=== PATIENT | male | born 1945 | race Caucasian/White ===

== ENCOUNTER 2016-11-30 05:31 | Day surgery (SDC) | payer MEDICARE, OTHER ==
[2016-11-30] VITALS (9 sets, daily range): BP systolic 97–135; BP diastolic 63–95; PULSE 64–91; RESP 9–16; O2SAT 88–100
[~2016-11-30] VITALS: Ht 170.2 cm; Wt 80.6 kg
[~2016-11-30 05:31] MED LIST: ASPI-973 PO; ATOR20TA PO; CARV3.122 PO; FINA5TAB9 PO; FUR20 PO; GABA-502 PO; IMAT400T7 PO; LOSA25TA21 PO; MULT-1018 PO; NICO1PAT16 TRANSDERM; NITR0.4T SL; OMEP40CA36 PO; ONDA-54 SL; OXYC-474 PO; OXYC10TA69 PO; PROC10TA PO; TAMS0.4C98 PO
[2016-11-30] MEDS ORDERED: Ondansetron 2 mg/mL 2 mL Inj ONE (05:32)
[2016-11-30] MEDS ORDERED: Dexamethasone 4 mg/mL Inj ONE (05:32)
[2016-11-30] MEDS ORDERED: EPHEDrine/NS 5 mg/mL 5 mL Syringe ONE (05:32)
[2016-11-30] MEDS ORDERED: HYDROmorphone 2 mg/mL Inj ONE (05:32)
[2016-11-30] MEDS ORDERED: Propofol 10,000 mCg/mL 20 mL Inj ONE (05:32)
[2016-11-30] MEDS ORDERED: fentaNYL-PF 50 mCg/mL 2 mL Inj ONE (05:32)
[2016-11-30] MEDS ORDERED: levoFLOXacin Inj 500 MG in IV Premix 1 EACH IV SCH (06:00)
[2016-11-30] MEDS: Lactated Ringer's 1,000 ML IV SCH ×2 (06:24→07:25)
--- NOTE | 2016-11-30 07:03 | PCM.HPANE ---
Patient Data Surgeon Admitting Provider: Attending Provider:Maria Antonia Kathleen MD Primary Care Physician:Nino Erickson MD Other Provider:Dari Pimentel Anesthesia Reason for Visit Urinary Retention Ht/WT & BMI Height (Feet): 5 Height (Inches): 7 Weight (Kilograms): 80.6 Body Mass Index 27.00 Allergies Coded Allergies: Penicillins (Verified Allergy, Severe, rash, fever, 11/25/16) lisinopril (Verified Adverse Reaction, Severe, cough, 11/25/16) Past Anesthesia History Anesthesia History: Denies:: Abnormal Airway, Anesthesia Reactions, Difficult Intubation, Fam Anesthesia Reaction, Fam Malignant Hypertherm, Malignant Hyperthermia Diabetes History Hx Diabetes?: No MRSA MRSA: No Medications Blood Thinner: Aspirin, Plavix Hypertension Medication: Yes (LASIX,LOSARTAN) Home Meds Incl Beta Ronine: Yes Date Beta Ronnie Taken: November 29, 2016 Time Beta Ronnie Taken: 1700 Previous Beta Ronnie Dose >24: Previous Dose <24 Hours Reported Medications Furosemide 20 Mg Tab20 Mg PO DAILY 30 Days Ref 0 11/25/16 Losartan Potassium 25 Mg Rlaxge00 Mg PO DAILY 11/25/16 Prochlorperazine Maleate (Prochlorperazine)10 Mg Wuzwle71 Mg PO DAILY Ref 0 11/25/16 Nitroglycerin SL (Nitrostat)0.4 Mg Tab.subl0.4 Mg SL Q5MIN PRN chest pain #1 BOTTLE 11/25/16 Multivitamin (Multi Vitamin Daily)1 Each Tablet1 Each PO DAILY 30 Days Ref 0 11/25/16 Omeprazole 40 Mg Capsule.dr40 Mg PO DAILY Ref 0 11/25/16 Finasteride 5 Mg Tablet5 Mg PO DAILY 30 Days Ref 0 11/25/16 Oxycodone ER (Oxycontin)10 Mg Tab.er.12h10 Mg PO BID 05/25/16 Oxycodone (Roxicodone)5 Mg Tablet5 Mg PO Q4H PRN For Pain Ref 0 05/25/16 Ondansetron 8 Mg Tablet8 Mg SL Q8H 05/25/16 Imatinib Mesylate 400 Mg Bxeclk954 Mg PO DAILY 05/25/16 Carvedilol 3.125 Mg Tablet3.125 Mg PO BID Ref 0 05/25/16 Atorvastatin (Lipitor)20 Mg Wlsykc31 Mg PO DAILY Ref 0 05/25/16 Aspirin 81 Mg Nzoumc97 Mg PO DAILY Ref 0 05/25/16 Tamsulosin (Flomax)0.4 Mg Capsule0.4 Mg PO DAILY 30 Days Ref 0 11/29/13 Discontinued Reported Medications Nicotine 21 mg/24 hr Patch 1 Each Patch.dysq1 Patch TRANSDERM DAILY Ref 0 11/25/16 Gabapentin 300 Mg Otuddhg651 Mg PO TID Ref 0 11/25/16 Clopidogrel Bisulfate (Plavix)75 Mg Cgnflh03 Mg PO DAILY 30 Days Ref 0 05/25/16 Losartan/HCTZ 100-12.5 mg 1 Each Tablet1 Tablet PO DAILY Ref 0 05/25/16 Hydrocortisone Acetate (Anusol-Hc)25 Mg Supp.rect25 Mg RC BID 05/25/16 [Superbeta Suppliment] No Conflict Check 11/29/13 Omeprazole (Prilosec)40 Mg Capsule.dr40 Mg PO DAILY 30 Days Ref 0 11/29/13 History History of ENT Problems?: Yes HEENT History: Positive for:: Dysphagia Hearing Problem Denies:: Abnormal Airway Difficult Intubation Denture Type: Full- Upper Full- Lower Teeth Condition: No Teeth Hx of Heart Problems?: Yes Cardiovascular History: Positive for:: Cardiac Surgery (S/P HEART CATH W/ STENTS X7 10/2015) Chest Pain Coronary Artery Disease (NSTEMI 10/2015) Edema Hypertension (HYPERLIPIDEMIA) Denies:: Atrial Fibrillation Heart Murmur Other Cardiac History: C/OF BLEEDING/BRUISING EASILY Other History/Comments denies recent chest pain/dyspnea. activity tolerance >4METS. No plavix since September Hx of Respiratory Problem?: Yes Respiratory History: Positive for:: COPD Emphysema Pneumonia (HX OF) Denies:: Asthma Cough Hemoptysis Tuberculosis Use of C-PAP Machine Hx Neurologic Problems?: Yes Neurological History: Denies:: CVA Dementia Hx of GI Problems?: Yes Hx of Problems?: Yes Other Pertinent History: URINARY RETENTION=CURRENT PROBLEM C/OF LUTS--09/2016 ED VISIT (HOME W/ ANDERSON FOR INABILITY TO VOID) Male Hx: Positive for:: Prostate Problems (BPH) Denies:: Scrotal Mass Testicular Surgery Skin History: Denies:: History Skin Disorders? 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) Hospitalization (CARDIAC) Denies:: Endocrine Disease Thyroid Disease History Blood Transfusions: Denies:: Blood Transfusions Hx Diabetes: No Hx Alcohol Use: Yes (1-2 DRINKS DAILY) Smoking Status: Former Smoker Have You Smoked inLast 12 mo: No Stop/Bang S-Snoring: Do You Snore Loudly: No T-Tired: feel tired, fatigued: Yes O-Obsered: Observed not breath: No P-Blood Pressure: treated: Yes B- Body Mass Index > 35 kg/m2: No A- Age over 50: Yes N- Neck Large Circumference: No G- Gender Male: Yes JASMINA Total Score: 4 JASMINA Risk Assessment: High Risk, =/>3 Yes JASMINA Category 4 OutPt Procedure: Yes Risk Assessment Category Category 1A: Patient has history of documented sleep apnea, and HAS NOT received any narcotic, sedative or anesthesia administration during this stay. Category 1B: Patient has history of documented sleep apnea, and HAS received any narcotic , sedative or anesthesia administration during this stay Category 2: Patient has SUSPECTED Obstructive Sleep Apnea, and HAS received any narcotic , sedative or anesthesia administration during this stay. Category 3: Patient has SUSPECTED Obstructive Sleep Apnea and HAS NOT received narcotic, sedative or anesthesia administration during this stay. Category 4: Outpatient in Procedural Areas with known sleep apnea or who screen positive for High Risk via the STOP/BANG questionnaire. Exam Exam Vital Signs Vital Signs Date Time Temp Pulse Resp B/P Pulse Ox O2 Delivery O2 Flow Rate FiO2 11/30/16 06:06 36.1 64 16 135/77 98 Room Air General Appearance: Alert, Oriented X3, Cooperative, No Acute Distress HEENT/AIRWAY: MP 2 Lungs: Normal Air Movement Heart: Exam Unremarkable Meds/Labs/Diagnostics Admission Meds Current Medications Lactated Ringer's (Lr) 1,000 ml @ 120 mls/hr Q8H20M IV Last administered on t 06:24; Start 11/30/16 at 05:00; Stop 11/30/16 at 13:19 Plan Impression Patient chart reviewed, patient interviewed and anesthestic plan with risks, benefits, and alternatives discussed, and informed consent obtained. NPO per Anesth. Guidelines: Yes ASA Physical Status: ASA3 Severe Disease (CAD with stents) Anesthetic Plan: GA Bene/Risks/Altern/Consents: Yes HP Complete Prior to Induction: Yes Ameya Asif MD November 30, 2016 07:03
[2016-11-30] MEDS ORDERED: Lactated Ringer's 500 ML IV PRN (07:48)
[2016-11-30] MEDS ORDERED: Lactated Ringer's 1,000 ML IV SCH (07:48)
[2016-11-30] MEDS ORDERED: Belladonna Alk-Opium 60 mg Rectal Suppository RECTAL ONE (07:49)
[2016-11-30] MEDS ORDERED: HYDROmorphone 1 mg/mL Inj IVPUSH PRN (07:50)
[2016-11-30] MEDS ORDERED: Albuterol-Ipratropium 3 mL Inhalation Solution NEB PRN (07:50)
[2016-11-30] MEDS ORDERED: fentaNYL-PF 50 mCg/mL 2 mL Inj IVPUSH PRN (07:50)
[2016-11-30] MEDS ORDERED: Phenylephrine 10,000 mCg/mL Inj IVPUSH PRN (07:50)
[2016-11-30] MEDS ORDERED: MetoCLOpramide 5 mg/mL 2 mL Inj IVPUSH PRN (07:50)
[2016-11-30] MEDS ORDERED: Dexamethasone 4 mg/mL Inj IVPUSH PRN (07:50)
[2016-11-30] MEDS ORDERED: EPHEDrine Sulfate 50 mg/mL Inj IVPUSH PRN (07:50)
[2016-11-30] MEDS ORDERED: Ondansetron 2 mg/mL 2 mL Inj IVPUSH PRN (07:50)
[2016-11-30] MEDS ORDERED: Lactated Ringer's 1,000 ML IV ONE (09:29)
[2016-11-30] MEDS ORDERED: Phenazopyridine 97.5 mg Tablet PO PRN (09:30)
[2016-11-30] MEDS ORDERED: HYDROcodone-APAP 5-325 mg Tablet PO PRN (09:30)
--- NOTE | 2016-11-30 10:06 | PCM.ANEP1 ---
Post Anesthesia Phase 1 PACU Phase 1 Assessment Vital Signs Vital Signs Date Time Temp Pulse Resp B/P Pulse Ox O2 Delivery O2 Flow Rate FiO2 11/30/16 09:52 36.4 76 16 96 Nasal Cannula 3 11/30/16 09:51 79 14 107/64 93 Nasal Cannula 3 11/30/16 09:45 76 16 113/95 95 Nasal Cannula 3 11/30/16 09:40 79 14 103/71 88 Room Air 11/30/16 09:35 83 9 105/66 100 Simple Mask 10 11/30/16 09:30 79 14 99/67 100 Simple Mask 10 11/30/16 09:27 36.8 91 13 97/63 100 Simple Mask 10 11/30/16 06:06 36.1 64 16 135/77 98 Room Air Anesthetic Administered: GA Level of Alertness: Awake, talking ROD's with Equal Strength: Yes Pain: No Nausea or Vomiting: No Cardiovascular Function and Hy: Yes Oxygen Delivery: Simple Mask Lungs: Normal Air Movement Dermatome Level: Full Sensation Complications: No Follow up Care: No Ameya Asif MD November 30, 2016 10:06
--- NOTE | 2016-12-01 08:39 | OP ---
[address] [address] OPERATIVE REPORT PATIENT: BRITTNEY RAUSCH : 1945 MR#: [id number] ADMIT: 11/30/2016 JOB ID: [id number] DATE OF SURGERY: 11/30/2016 PROCEDURE: Transurethral resection of the prostate. SURGEON: Maria Antonia Kathleen M.D. ANESTHESIA: General. PREOPERATIVE DIAGNOSIS(ES): 1. Urinary retention. 2. Benign prostatic hypertrophy with obstruction. 3. Large prostate. POSTOPERATIVE DIAGNOSIS(ES): 1. Urinary retention. 2. Benign prostatic hypertrophy with obstruction. 3. Large prostate. INDICATIONS: The patient is a very pleasant gentleman with history of progressive lower urinary tract symptoms, difficulty emptying, catheter placed at one point in time for retention, electing a TURP to try to get him voiding better again on his own. PROCEDURE IN DETAIL: After appropriate informed consent was obtained, the patient was brought to the operating room. He received IV antibiotics prior to onset of the procedure. SCDs were placed. Adequate general anesthesia induced. She was carefully placed in the dorsal lithotomy position. All pressure points carefully padded. Cleaned, prepped and draped in the usual sterile fashion. Rigid scope was introduced into the patient's bladder which is surveyed in a systematic fashion. Noted to be moderately trabeculated with large intravesical prostate. Bilateral orthotopic ureteral orifices somewhat hidden by the prostate. 30 and 70-degree lenses were both used. We then removed this and introduced the 26-Portuguese outer sheath continuous-flow resectoscope. We initially used a cutting loop to resect a large volume of prostate given its large size, and then changed over to the plasma button with the Open Energi system for ablation and hemostasis. Great care was taken to stay proximal to the area of the urethral sphincter. The patient did have a large volume of prostate. We resected down, not all the way down, to the capsule but leaving in a large open channel as visible from the verumontanum on up to the bladder neck. At the termination of the procedure, hemostasis was quite good. The urine was very light pink, mostly clear. It was irrigated out. A 24-Portuguese Lovell catheter was placed with 20 cc in the balloon and left to gravity drainage, draining nicely. The patient tolerated the procedure very well, was awakened and taken in stable condition to the postanesthesia care unit.
--- NOTE | 2016-12-01 11:25 | PATH ---
SURGICAL PATHOLOGY Attending Physician:Maria Antonia Kathleen MD CASE STATUS: Signed Out PATIENT NAME: BRITTNEY RAUSCH PID: [id number] : 1945 DATE COLLECTED:11/30/2016 17:33 SPECIMEN: Prostate, Chips CLINICAL HISTORY: HISTORY OF GIANT CELL TUMOR, TENDON SHEATH TUMOR LT THIGH/GROIN. URINARY RETENTION 1). RESECTED PROSTATE FINAL DIAGNOSIS: 1.PROSTATE, TUR FRAGMENTS: BENIGN FIBROGLANDULAR HYPERPLASIA. NO EVIDENCE OF MALIGNANCY. ICD10 CODE N40.1 GROSS DESCRIPTION: The specimen is received in one formalin filled container labeled with the patient's name, sublabeled "resected prostate" and consists of a 5.0 x 5.0 x 1.2 CM aggregate of pink-palencia vang-pearson tissue fragments. The specimen weighs 12.1 g in total. The specimen is entirely submitted in 10 cassettes. 11/30/2016 DAC MICRO DESCRIPTION: See diagnosis. ICD-9 CODES: CPT CODES: 1: 57507 Electronically Signed Out Ayala Espinoza MD [facility] [address], [place] [address] Technical component performed at [facility], [address] [place] [address] Ave[address], [place], [address]
== END 2016-11-30 23:59 | disposition home or self-care (01) ==
LOC: SAS 05:31
PROVIDERS: ATTEND Urology
DX: N40.1 Benign prostatic hyperplasia with lower urinary tract symptoms (principal); R33.9 Retention of urine, unspecified; R35.0 Frequency of micturition; D48.1 Neoplasm of uncertain behavior of connective and other soft tissue; E78.00 Pure hypercholesterolemia, unspecified; K22.70 Barrett's esophagus without dysplasia; I25.10 Atherosclerotic heart disease of native coronary artery without angina pectoris; I25.2 Old myocardial infarction; J44.9 Chronic obstructive pulmonary disease, unspecified; I11.0 Hypertensive heart disease with heart failure; M19.90 Unspecified osteoarthritis, unspecified site; I25.5 Ischemic cardiomyopathy; I21.4 Non-ST elevation (NSTEMI) myocardial infarction; I50.42 Chronic combined systolic (congestive) and diastolic (congestive) heart failure; Z95.5 Presence of coronary angioplasty implant and graft; Z87.891 Personal history of nicotine dependence; Z79.82 Long term (current) use of aspirin
CPT/HCPCS: 52601; 88305; J1100; J1170; J2405; J3010; J7120